=== PATIENT | male | born 1970 | race Caucasian/White ===

== ENCOUNTER 2017-05-27 05:23 | Day surgery (SDC) | payer OTHER ==
[~2017-05-27] VITALS: Ht 172.7 cm; Wt 120.2 kg
[~2017-05-27 05:23] MED LIST: ADVIL200 MG PO; DIOVAN HCT 31 TABLET PO; FLOMAX0.4 MG PO; INDOCIN50 MG PO; LIPITOR80 MG PO; LISINOPRIL-HCT1 EAC3; MOTRIN800 MG PO; NORCO 10/3251 TABLET PO; PERCOCET 5-3251 EACH PO; PERCOCET 5/31 TABLET PO; PREVACID30 MG PO; PROMETHAZINE HC25 M1 PO; RELPAX40 MG PO; TOPAMAX100 MG PO; UROCIT-K15 MEQ PO; ZOFRAN ODT4 MG PO; ZYLOPRIM100 MG PO
[2017-05-27 06:00] VITALS: BP 135/69
[2017-05-27] MEDS ORDERED: PERCOCET 5/31 TABLET PO (08:54)
[2017-05-27 10:24] VITALS: BP 143/91
[2017-05-27 11:28] VITALS: BP 129/77
== END 2017-05-27 11:40 | disposition home or self-care (01) ==
LOC: SDC 05:23
PROC: 0WUF4JZ Supplement Abdominal Wall with Synthetic Substitute, Percutaneous Endoscopic Approach (ICD-10-PCS; principal; 2017-05-27)
DX: K42.0 Umbilical hernia with obstruction, without gangrene (principal); I10 Essential (primary) hypertension; F43.22 Adjustment disorder with anxiety; K21.9 Gastro-esophageal reflux disease without esophagitis; I95.89 Other hypotension; E66.01 Morbid (severe) obesity due to excess calories; Z68.41 Body mass index [BMI] 40.0-44.9, adult; G47.33 Obstructive sleep apnea (adult) (pediatric); E78.5 Hyperlipidemia, unspecified; Z87.891 Personal history of nicotine dependence; Z82.49 Family history of ischemic heart disease and other diseases of the circulatory system; Z80.3 Family history of malignant neoplasm of breast; Z80.6 Family history of leukemia; Z80.0 Family history of malignant neoplasm of digestive organs
CPT/HCPCS: 93005; C1781; J0330; J0690; J1170; J1885; J2405; J3010